=== PATIENT | male | born 1990 | race Caucasian/White ===

== ENCOUNTER 2024-05-20 13:30 | Inpatient (IN) | payer MEDICAID, OTHER ==
[~2024-05-20] VITALS: Ht 180.3 cm; Wt 93.8 kg
[2024-05-20 01:00] VITALS: BP 118/65; PULSE 58; RESP 19; TEMP 97.4; O2SAT 100
[2024-05-20 15:49] LABS: Basophils # (auto) 0 10 ^3/uL (0-0.2); Basophils % (auto) 0.3 % (0.0-2.0); Eosinophils # (auto) 0 10 ^3/uL (0-0.8); Hematocrit 42.2 % (41.0-53.0); Hemoglobin 14.6 g/dL (13.5-17.5); Lymphocytes # (auto) 0.7 10 ^3/uL (0.4-5.4); Lymphocytes % (auto) 5.7 % (10.0-50.0); Mean Corpuscular Hemoglobin 29.1 pg (28.0-32.0); Mean Corpuscular Hgb Conc. 34.6 g/dL (32.0-36.0); Mean Corpuscular Volume 84.3 fL (80.0-100.0); Monocytes # (auto) 0.3 10 ^3/uL (0-1.3); Monocytes % (auto) 2.5 % (0.0-12.0); Neutrophils # (auto) 12.1 10 ^3/uL (1.6-8.6); Neutrophils % (auto) 91.5 % (37.0-80.0); Red Blood Cells 5.01 10^6/uL (4.5-5.90); Red Cell Distribution Width 12.9 % (11.8-14.3); White Blood Cell 13.2 10^3/uL (4.4-10.8)
[2024-05-20 16:06] LABS: Alanine Aminotransferase 18 U/L (7-40); Albumin 4.3 g/dL (3.2-4.8); Alkaline Phosphatase 57 U/L (46-116); Anion Gap 9 (5-15); Aspartate Aminotransferase 9 U/L (13-40); BUN/Creatinine Ratio 13.4 (10.0-20.0); Blood Urea Nitrogen 9 mg/dL (9-23); Calcium 9.4 mg/dL (8.7-10.4); Carbon Dioxide 26 mmol/L (20-30); Chloride 104 mmol/L (98-107); Glucose 114 mg/dL (74-106); Lipase 39 U/L (12-53); Magnesium 1.9 mg/dL (1.6-2.6); Potassium 3.9 mmol/L (3.5-5.1); Sodium 139 mmol/L (136-145)
[2024-05-20 16:07] LABS: Bilirubin, Total 0.4 mg/dL (0.2-1.0)
[2024-05-20] MEDS: IOHEXOL 300 MG/ML 100ML BOTTLE IJ ONE (16:37)
[2024-05-20 17:35] VITALS: RESP 19; O2SAT 97
[2024-05-20] MEDS: LIDOCAINE VISCOUS 2% 15ML UD PO ONE (17:48)
[2024-05-20] MEDS: MAALOX PLUS or MAALOX 30 ML PO ONE (17:48)
[2024-05-20] MEDS: DONNATAL 5ml ORAL Elix (BELLADONNA ALK-PHENOBARB) PO ONE (17:49)
[2024-05-20] MEDS: SODIUM CHLORIDE 0.9% 1,000 ML IVB ONE ×2 (18:00→19:04)
[2024-05-20] MEDS: METOCLOPRAMIDE HCL 5MG/ml INJ 2ml VIAL IV ONE (18:05)
[2024-05-20] MEDS: PROCHLORPERAZINE EDISYLATE 5 MG/ML 2ML VIAL IV ONE (19:03)
[2024-05-20] MEDS: HYDROmorphone HCL 2 MG/ML VL/or syr IV ONE (19:03)
[2024-05-20 19:30] VITALS: PULSE 66; RESP 17; O2SAT 97
[2024-05-20 19:56] LABS: Urine Bacteria None Seen /hpf (None Seen)
[2024-05-20] MEDS: PANTOPRAZOLE 40 MG/10 ML VIAL INJ IV ONE (20:11)
[2024-05-20] MEDS: ONDANSETRON HCL 4 MG/2 ML VIAL IV PRN (20:11)
[2024-05-20] MEDS: MORPHINE SULFATE INJ 2 MG/ml SYRG IV PRN (20:12)
[2024-05-20] MEDS: SODIUM CHLORIDE 0.9% 1,000 ML IV SCH (20:13)
[2024-05-20 20:17] LABS: Amphetamine Screen, Urine Neg (NEGATIVE); Barbiturate Scree,Urine Neg (NEGATIVE); Benzodiazephine Screen, Urine Pos (NEGATIVE); Cocaine Screen, Urine Neg (NEGATIVE); Opiate Scree,Urine Neg (NEGATIVE); Phencyclidine Screen, Urine Neg (NEGATIVE); Urine Blood Negative /uL (Negative); Urine Clarity Clear (Clear); Urine Color Yellow (Yellow); Urine Protein, UAD Negative (Negative); Urine Urobilinogen Normal (Negative); Urine WBC <1 /hpf (0 - 3); Urine pH 6.5 (5.0-9.0)
[2024-05-20 20:18] LABS: Cannabinoid Screen, Urine Pos (NEGATIVE)
[2024-05-20 22:30] VITALS: BP 131/72; PULSE 57; RESP 20; TEMP 97.4; O2SAT 97
[2024-05-20] MEDS ORDERED: CETI10CA PO (23:13)
[2024-05-20] MEDS ORDERED: PRED20TA2 PO (23:13)
[2024-05-20] MEDS ORDERED: PANT40TA2 PO (23:14)
[2024-05-20] MEDS ORDERED: PAR20T PO (23:14)
[2024-05-20] MEDS ORDERED: AZIT500T66 PO (23:14)
[2024-05-20] MEDS ORDERED: PNEUMOCOCCAL VACC POLYS 25 MCG/0.5 ML VIAL IM ONE (23:15)
[2024-05-20] MEDS: METOCLOPRAMIDE HCL 5MG/ml INJ 2ml VIAL IV SCH (23:29)
[2024-05-21] VITALS (12 sets, daily range): BP systolic 117–151; BP diastolic 68–89; PULSE 53–77; RESP 16–20; TEMP 97.5–98; O2SAT 91–99
[2024-05-21 06:15] LABS: Basophils # (auto) 0 10 ^3/uL (0-0.2); Basophils % (auto) 0.3 % (0.0-2.0); Eosinophils # (auto) 0 10 ^3/uL (0-0.8); Eosinophils % (auto) 0.3 % (0.0-7.0); Lymphocytes # (auto) 3.4 10 ^3/uL (0.4-5.4); Lymphocytes % (auto) 27.8 % (10.0-50.0); Mean Corpuscular Hemoglobin 29.3 pg (28.0-32.0); Mean Corpuscular Hgb Conc. 35.2 g/dL (32.0-36.0); Mean Corpuscular Volume 83.1 fL (80.0-100.0); Monocytes # (auto) 1.2 10 ^3/uL (0-1.3); Monocytes % (auto) 9.7 % (0.0-12.0); Neutrophils # (auto) 7.6 10 ^3/uL (1.6-8.6); Neutrophils % (auto) 61.9 % (37.0-80.0); Nucleated Red Blood Cells % 0.1 %; Red Blood Cells 4.45 10^6/uL (4.5-5.90); Red Cell Distribution Width 12.5 % (11.8-14.3); White Blood Cell 12.2 10^3/uL (4.4-10.8)
[2024-05-21 06:26] LABS: Alanine Aminotransferase 14 U/L (7-40); Alkaline Phosphatase 45 U/L (46-116); Anion Gap 8 (5-15); BUN/Creatinine Ratio 15.5 (10.0-20.0); Blood Urea Nitrogen 11 mg/dL (9-23); Carbon Dioxide 28 mmol/L (20-30); Chloride 107 mmol/L (98-107); Glucose 85 mg/dL (74-106); Sodium 143 mmol/L (136-145)
[2024-05-21 06:27] LABS: Albumin 3.4 g/dL (3.2-4.8); Aspartate Aminotransferase < 8 U/L (13-40); Bilirubin, Total 0.5 mg/dL (0.2-1.0); Total Protein 5.4 g/dL (5.7-8.2)
[2024-05-21] MEDS: PANTOPRAZOLE 40 MG/10 ML VIAL INJ IV SCH (09:42)
[2024-05-21] MEDS ORDERED: GASTROGRAFIN 120 ML SOL ONE (09:50)
[2024-05-21] MEDS: IPRATROPIUM BROM 0.5 MG/2.5ML INH SOL NEB ONE (14:28)
[2024-05-21] MEDS: ALBUTEROL SULF 2.5 MG/0.5ML(0.5%) NEB SOLN NEB ONE (14:28)
[2024-05-21] MEDS: LACTATED RINGER'S 1,000 ML IV SCH (16:30)
[2024-05-21] MEDS ORDERED: ALBUTEROL SULF 2.5 MG/0.5ML(0.5%) NEB SOLN NEB SCH (18:00)
[2024-05-21] MEDS: ALBUTEROL SULF 2.5 MG/0.5ML(0.5%) NEB SOLN NEB SCH (18:17)
[2024-05-21] MEDS: IPRATROPIUM BROM 0.5 MG/2.5ML INH SOL NEB SCH (18:17)
[2024-05-21] MEDS: LORATADINE 10 MG TAB PO SCH (23:02)
[2024-05-21] MEDS: ALPRAZolam 0.5 MG TAB PO ONE (23:02)
[2024-05-22] VITALS (10 sets, daily range): BP systolic 119–137; BP diastolic 71–93; PULSE 52–78; RESP 14–19; TEMP 97.4–98.6; O2SAT 94–100
[2024-05-22 02:16] LABS: COVID19 ANTIGEN SOFIA FIA NEGATIVE (NEGATIVE)
[2024-05-22 07:04] LABS: INR 1.11 (0.9-1.15); Partial Thromboplastin Time 23.7 SEC (24.5-34.5); Prothrombin Time 11.7 sec (9.3-11.8)
[2024-05-22 08:17] LABS: Basophils # (auto) 0 10 ^3/uL (0-0.2); Basophils % (auto) 0.4 % (0.0-2.0); Eosinophils # (auto) 0 10 ^3/uL (0-0.8); Eosinophils % (auto) 0.2 % (0.0-7.0); Hematocrit 40.6 % (41.0-53.0); Hemoglobin 13.9 g/dL (13.5-17.5); Lymphocytes # (auto) 3.1 10 ^3/uL (0.4-5.4); Lymphocytes % (auto) 26.3 % (10.0-50.0); Mean Corpuscular Hemoglobin 29.2 pg (28.0-32.0); Mean Corpuscular Hgb Conc. 34.3 g/dL (32.0-36.0); Mean Corpuscular Volume 85.2 fL (80.0-100.0); Monocytes # (auto) 0.8 10 ^3/uL (0-1.3); Monocytes % (auto) 6.8 % (0.0-12.0); Neutrophils # (auto) 7.8 10 ^3/uL (1.6-8.6); Neutrophils % (auto) 66.3 % (37.0-80.0); Red Blood Cells 4.76 10^6/uL (4.5-5.90); Red Cell Distribution Width 12.6 % (11.8-14.3); White Blood Cell 11.7 10^3/uL (4.4-10.8)
[2024-05-22] MEDS ORDERED: PROPOFOL 10 MG/ML 20 ML IV ONE (08:58)
[2024-05-22] MEDS: cefTRIAXone 1GM/50ML D5W 50 ML IV SCH (09:00)
[2024-05-22] MEDS ORDERED: fentaNYL CITRATE 100 MCG/2 ML VL ONE (09:01)
[2024-05-22] MEDS: predniSONE 20 MG TAB PO SCH (10:42)
[2024-05-22] MEDS: PARoxetine 20 MG TAB PO SCH (10:42)
[2024-05-22] MEDS: AZITHROMYCIN 500MG/ 250ML 250 ML IV SCH (10:44)
[2024-05-22] MEDS ORDERED: ALBUAER3 IN (16:52)
[2024-05-22] MEDS ORDERED: PANT40T PO (16:52)
[2024-05-23] MEDS ORDERED: PANTOPRAZOLE 40 MG TAB PO SCH (06:00)
== END 2024-05-22 18:30 | disposition home or self-care (01) | DRG 254 ==
LOC: ER 13:30 → OVERFLOW 19:18 → EAST 22:30
PROVIDERS: ADMIT Internal Medicine; ATTEND Emergency Medicine
PROC: 0DB68ZX Excision of Stomach, Via Natural or Artificial Opening Endoscopic, Diagnostic (ICD-10-PCS; 2024-05-22)
PROC: 0DB48ZX Excision of Esophagogastric Junction, Via Natural or Artificial Opening Endoscopic, Diagnostic (ICD-10-PCS; 2024-05-22)
PROC: 0DB98ZX Excision of Duodenum, Via Natural or Artificial Opening Endoscopic, Diagnostic (ICD-10-PCS; principal; 2024-05-22 09:23)
DX: K44.9 Diaphragmatic hernia without obstruction or gangrene (principal); K22.10 Ulcer of esophagus without bleeding; K29.00 Acute gastritis without bleeding; E86.0 Dehydration; K31.9 Disease of stomach and duodenum, unspecified; F41.9 Anxiety disorder, unspecified; F32.A Depression, unspecified; J45.909 Unspecified asthma, uncomplicated; Z20.822 Contact with and (suspected) exposure to COVID-19; F12.10 Cannabis abuse, uncomplicated; F17.290 Nicotine dependence, other tobacco product, uncomplicated; Z80.0 Family history of malignant neoplasm of digestive organs; Z79.899 Other long term (current) drug therapy
CPT/HCPCS: 36415; 70450; 71046; 74177; 74250; 80053; 80307; 81001; 83690; 83735; 84484; 85025; 85610; 85730; 86703; 86850; 86900; 86901; 87040; 87045; 87070; 87177; 87205; 87340; 87426; 87427; 87493; 93005; 94640; 96361; 96374; 96375; G0378; J2405; J2470; J2704